=== PATIENT | male | born 1965 | race Two or more races ===

== ENCOUNTER 2016-08-23 09:20 | Emergency (ER) | payer MEDICARE, OTHER ==
[~2016-08-23] VITALS: Ht 165.1 cm; Wt 65.8 kg
--- NOTE | 2016-08-23 09:20 | NUR ---
BIB [facility] FROM [facility], WORSENING BACK PAIN, GABAPENTIN NOT HELPING. 02/20 BACK PAIN. VSS. PT PLACED IN GOWN AND MONITOR. MD AT BEDSIDE FOR EVAL.
[2016-08-23] MEDS ORDERED: GABA600T2 PO (09:30)
[2016-08-23] MEDS ORDERED: CHEMOTHERAPY (09:30)
[2016-08-23] MEDS ORDERED: ANTI HTN (09:30)
[2016-08-23] MEDS ORDERED: IV SET PRIMARY 1 EA INFUS.SET MC ONE (09:37)
[2016-08-23] MEDS ORDERED: IV NS 0.9% 1,000 ML ONE (09:37)
[2016-08-23] MEDS ORDERED: ONDANSETRON HCL/PF 4 MG/2 ML VIAL ONE (09:37)
[2016-08-23] MEDS ORDERED: HYDROMORPHONE INJ 2 MG/ML DISP.SYRIN ONE (09:37)
[2016-08-23 09:42] LABS: EOSINOPHILS # (AUTO) 0.4 /CMM (0.0-0.7); LYMPHOCYTES # (AUTO) 0.4 /CMM (0.8-4.8); MONOCYTES # (AUTO) 0.6 /CMM (0.1-1.30)
[2016-08-23 09:47] LABS: BASOPHILS % (AUTO) 1.3 % (0.0-2.0); EOSINOPHILS % (AUTO) 16.2 % (0.0-6.0); HEMATOCRIT 38 % (39-51); HEMOGLOBIN 12.6 g/dL (13.5-17.5); LYMPHOCYTES % (AUTO) 16.7 % (20.0-44.0); MEAN CORPUSCULAR HEMOGLOBIN 28 PG (26.0-33.0); MEAN CORPUSCULAR HGB CONC 33 g/dl (31.0-36.0); MEAN CORPUSCULAR VOLUME 87 fL (80-96); MONOCYTES % (AUTO) 24.6 % (2.0-12.0); NEUTROPHILS % (AUTO) 41.2 % (43.0-81.0); PLATELET COUNT (AUTO) 156 /CMM (150-450); RDW COEFFICIENT OF VARIATION 14.2 (11.5-15.0); RED BLOOD CELL COUNT(AUTO) 4.42 MIL/uL (4.5-6.0); WHITE BLOOD COUNT (AUTO) 2.4 K/uL (4.3-11.0)
--- NOTE | 2016-08-23 09:47 | NUR ---
MEDICATIONS GIVEN ORDERED.
--- NOTE | 2016-08-23 09:50 | NUR ---
PT AMBULATORY WITH STEADY GAIT TO THE RESTROOM. URINE SAMPLE PROVIDED.
[2016-08-23 09:53] LABS: CALCIUM, SERUM 8.6 mg/dL (8.5-10.1); CARBON DIOXIDE 27 mmol/L (21-32); CHLORIDE 103 mmol/L (98-107); CREATININE 0.7 mg/dL (0.6-1.3); GLUCOSE 97 mg/dL (74-106); POTASSIUM 4.1 mmol/L (3.5-5.1); SODIUM SERUM 137 mmol/L (136-145)
[2016-08-23 09:58] LABS: PROTHROMBIN TIME 10.4 SECS (9.5-12.7)
[2016-08-23] MEDS ORDERED: IV NS 0.9% 1,000 ML BAG IV ONE (10:00)
[2016-08-23] MEDS ORDERED: HYDROMORPHONE INJ 2 MG/ML DISP.SYRIN IV ONE (10:00)
[2016-08-23] MEDS ORDERED: ONDANSETRON HCL/PF 4 MG/2 ML VIAL IV ONE (10:00)
[2016-08-23 10:01] LABS: TROPONIN I < 0.017 ng/mL (0.00-0.056)
[2016-08-23 10:13] LABS: UREA NITROGEN, BLOOD 11 mg/dL (7-18)
[2016-08-23 10:14] LABS: GFR 118 mL/min (>60)
[2016-08-23 10:17] LABS: APPEARANCE,URINE Clear (CLEAR); BILIRUBIN,URINE Negative (NEGATIVE); BLOOD, URINE Negative Ery/uL (NEGATIVE); COLOR,URINE Yellow (YELLOW); KETONES,URINE Negative (NEGATIVE); LEUKOCYTE ESTERASE ,URINE Negative (NEGATIVE); NITRITE, URINE Negative (NEGATIVE); PH,URINE 6.5 (5.0-8.0); PROTEIN,URINE Negative (NEGATIVE); UGLUCOSE Negative (NEGATIVE); UROBILINOGEN,URINE 0.2 EU/dL (0.2)
[2016-08-23 10:25] LABS: NEUTROPHILS % (MANUAL) 44 (42-76)
[2016-08-23 10:26] LABS: EOSINOPHILS % (MANUAL) 14 % (0-4); LYMPHOCYTES % (MANUAL) 23 % (16-48); MONOCYTES % (MANUAL) 19 % (0-11.0); PLATELET ESTIMATE ADEQUATE
[2016-08-23] MEDS ORDERED: IV NS 0.9% 250 ML IV ONE (10:28)
[2016-08-23] MEDS ORDERED: IOHEXOL-350 100 ML VIAL IV ONE (10:28)
[2016-08-23] MEDS ORDERED: CT SWABBABLE VALVE TRANS SET 1 EA INFUS.SET MC ONE (10:28)
--- NOTE | 2016-08-23 10:41 | NUR ---
PT TO CT
--- NOTE | 2016-08-23 12:30 | NUR ---
IV removed. Catheter intact and site benign. Pressure and 4x4 applied to site. No bleeding noted.Patient discharged to home in stable condition. Written and verbal after care instructions given. Patient verbalizes understanding of instruction.
[2016-08-23 13:10] VITALS: BP 142/73
== END 2016-08-23 13:11 | disposition home or self-care (01) ==
LOC: ER 09:23
DX: C85.90 Non-Hodgkin lymphoma, unspecified, unspecified site (principal)
CPT/HCPCS: 36415; 71010; 71275; 72131; 80048; 81001; 84484; 85025; 85730; 93005; 96361; 96374; 96375; 99285; A4606; J1170; J2405; J7030; J7050; Q9967; 81000-TC; Z7610